=== PATIENT | male | born 1970 | race Two or more races ===

== ENCOUNTER 2018-12-20 01:25 | Emergency (ER) | payer OTHER ==
--- NOTE | 2018-12-20 02:23 | PDOC ---
History of Present Illness - General Chief Complaint: Pain, Acute Stated Complaint: PAIN LOWER RIGHT SIDE History Source: Patient Exam Limitations: No Limitations - History of Present Illness Initial Comments: 12/20/18 05:25 48 yo M with a hx of bladder cancer and HTN presents to the emergency department with right flank/right lower back pain that has been ongoing for 2 days with increasing severity. Per the patient, 2 weeks ago he developed RUQ pain that migrated to the right flank 2 days ago. Per the patient, the pain would be worse after eating fatty meals. Currently, the pain feels like a sharp burning sensation that is 4/10 now (10/10 at presentation). Colicky in nature. Per the patient, he denies the following: fever, chills, hematuria, dysuria, hematochezia, diarrhea, hx of gallstones, trauma, and rashes. He states he was told many years ago he had a kidney stone seen on CT, but does not know laterality. Shx: None Meds: losartan Allergies: NKDA Social: Endorses cigar smoking 12/20/18 05:41 Past History - Past Medical History Allergies/Adverse Reactions: Allergies Allergy/AdvReac Type Severity Reaction Status Date / Time ethinyl estradiol Allergy Verified 12/20/18 01:55 [From [facility] ()] levonorgestrel Allergy Verified 12/20/18 01:55 [From [facility] ()] Home Medications: Ambulatory Orders Losartan 50Mg/Hctz 12.5MG [Hyzaar -] 1 tab PO DAILY 12/20/18 Naproxen 500 mg PO BID PRN #20 tablet 12/20/18 COPD: No HTN: Yes - Suicide/Smoking/Psychosocial Hx Smoking History: Never smoked Have you smoked in the past 12 months: No Information on smoking cessation initiated: No Hx Alcohol Use: No Drug/Substance Use Hx: No Review of Systems - Review of Systems Able to Perform ROS?: Yes Is the patient limited Belarusian proficient: No Constitutional: No: Chills, Diaphoresis, Fever, Weakness HEENTM: No: Eye Pain, Recent change in vision, Ear Pain, Nose Pain, Throat Pain , Mouth Pain Respiratory: No: Cough, Shortness of Breath, Hemoptysis Cardiac (ROS): No: Chest Pain, Lightheadedness, Palpitations, Syncope, Chest Tightness ABD/GI: No: Constipated, Diarrhea, Nausea, Poor Appetite, Poor Fluid Intake, Rectal Bleeding, Vomiting, Tarry Stools : Yes: Flank Pain (right). No: Burning, Dysuria, Hematuria, Incontinence Musculoskeletal: Yes: Back Pain. No: Joint Pain, Neck Pain Integumentary: No: Bruising, Erythema, Rash Neurological: No: Headache, Numbness, Tingling, Tremors, Ataxia, Dizziness Psychiatric: No: Change in Appetite Endocrine: No: Unexplained Weight Gain *Physical Exam - Vital Signs Last Vital Signs Temp Pulse Resp BP Pulse Ox 97.8 F 75 20 162/94 99 12/20/18 01:46 12/20/18 01:46 12/20/18 01:46 12/20/18 01:46 12/20/18 01:46 - Physical Exam General Appearance: Yes: Nourished, Appropriately Dressed. No: Apparent Distress, Intoxicated, Obese HEENT: positive: EOMI, RA, Normal Voice, Symmetrical, Pharynx Normal, Hearing Grossly Normal. negative: Pale Conjunctivae, Scleral Icterus (R), Scleral Icterus (L), Muffled/Hoarse voice, Pharyngeal Erythema, Tonsillar Exudate, Tonsillar Erythema, Nasal Congestion, Rhinorrhea, Excessive drooling Neck: positive: Trachea midline, Supple. negative: Tender, Lymphadenopathy (R) , Lymphadenopathy (L), Tender lateral, Tender midline Respiratory/Chest: positive: Lungs Clear, Normal Breath Sounds. negative: Chest Tender, Respiratory Distress, Accessory Muscle Use, Crackles, Rales, Rhonchi, Stridor, Wheezing, Hyperresonant Cardiovascular: positive: Regular Rhythm, Regular Rate, S1, S2. negative: Systolic Murmur Gastrointestinal/Abdominal: positive: Normal Bowel Sounds, Tender (RLQ), Flat, Soft. negative: Guarding, Rebound Lymphatic: negative: Adenopathy Musculoskeletal: positive: Normal Inspection. negative: CVA Tenderness, Vertebral Tenderness Extremity: positive: Normal Capillary Refill, Normal Inspection, Normal Range of Motion. negative: Tender, Swelling, Calf Tenderness Integumentary: positive: Normal Color, Dry, Warm Neurologic: positive: installation & maintenance executive II-XII NML intact, Fully Oriented, Alert, Normal Mood/ Affect, Normal Response, Motor Strength 5/5. negative: EOM Palsy, Facial Droop , Numbness, Sensory Deficit Moderate Sedation - Procedure Monitoring Vital Signs: Procedure Monitoring Vital Signs Temperature 97.8 F 12/20/18 01:46 Pulse Rate 75 12/20/18 01:46 Respiratory Rate 20 12/20/18 01:46 Blood Pressure 162/94 12/20/18 01:46 O2 Sat by Pulse Oximetry (%) 99 12/20/18 01:46 ED Treatment Course - LABORATORY CBC & Chemistry Diagram: 12/20/18 03:30 12/20/18 03:30 Medical Decision Making - Medical Decision Making 48 yo M with a hx of bladder cancer and HTN presents to the emergency department with right flank/right lower back pain that has been ongoing for 2 days with increasing severity. Initial vitals: Initial Vital Signs Temp Pulse Resp BP Pulse Ox 97.8 F 75 20 162/94 99 12/20/18 01:46 12/20/18 01:46 12/20/18 01:46 12/20/18 01:46 12/20/18 01:46 Work up: ddx: cholelithiasis vs cholecystitis vs uTI vs msk strain vs nephrolithiasis vs pyelonephritis vs appendicitis vs colitis vs ilelitis Laboratory Tests 12/20/18 12/20/18 12/20/18 03:30 03:30 03:30 WBC 7.2 RBC 4.50 Hgb 14.7 Hct 41.3 MCV 91.8 MCH 32.6 MCHC 35.5 RDW 13.1 Plt Count 236 MPV 8.3 Absolute Neuts (auto) 4.3 Neutrophils % 59.4 Lymphocytes % 26.0 Monocytes % 9.4 Eosinophils % 4.5 Basophils % 0.7 Nucleated RBC % 0 Sodium 140 Potassium 4.1 Chloride 107 Carbon Dioxide 28 Anion Gap 5 L BUN 17 Creatinine 1.0 Creat Clearance w eGFR 79.09 Random Glucose 90 Calcium 9.1 Total Bilirubin 0.3 AST 22 ALT 25 Alkaline Phosphatase 62 Total Protein 7.0 Albumin 3.8 Lipase 279 Urine Color Yellow Urine Appearance Clear Urine pH 5.5 Ur Specific Canvas 1.019 Urine Protein Negative Urine Glucose (UA) Negative Urine Ketones Negative Urine Blood Negative Urine Nitrite Negative Urine Bilirubin Negative Urine Urobilinogen 0.[address] abdomen and pelvis does not show acute intra-abdominal pathologies. labs wnl. patient's pain was controlled with tylenol and toradol. at the time of discharge, the patient's pain was controlled and was given a prescription for naproxen. In addition, a copy of the CT report was given to the patient. the patient was able to ambulate on his own volition. Dispo: Discharge *DC/Admit/Observation/Transfer Diagnosis at time of Disposition: Musculoskeletal back pain - Discharge Dispostion Disposition: HOME Decision to Admit order: No - Prescriptions Prescriptions: Naproxen 500 mg PO BID PRN #20 tablet PRN Reason: Pain - Referrals Referrals: [facility] – [place], [place] [facility] [place] [Provider Group] - Patient Instructions Printed Discharge Instructions: DI for Low Back Pain Additional Instructions: you were seen in the emergency department for the evaluation of your back pain. per the CT, you do not have an intra-abdominal process. your labs were within normal limits. please follow up with your primary medical doctor within 1 week after discharge for follow up care and management. please return to the emergency department if you have worsening symptoms or new concerning symptoms such as pain with urination, blood in the urine, intractable nausea and vomiting , and fevers. In addition, please return to the emergency department if you are unable to walk and have difficulty urinating. thank you. - Post Discharge Activity
[2018-12-20] MEDS ORDERED: ACETAMINOPHEN 1000 MG/100 ML VIAL (NON FORMULARY) IVPB ONE (03:14)
[2018-12-20] MEDS ORDERED: SODIUM CHLORIDE 1,000 ML IV STA (03:14)
[2018-12-20 03:29] VITALS: BMI 25.8
[2018-12-20] MEDS ORDERED: ACETAMINOPHEN INJECTION 100 ML IVPB ONE (03:35)
[2018-12-20 03:37] LABS: BASO % 0.7 % (0-2.0); EOS % 4.5 % (0-4.5); HEMATOCRIT 41.3 % (35.4-49); HEMOGLOBIN 14.7 GM/dL (11.7-16.9); MCH 32.6 pg (25.7-33.7); MCHC 35.5 g/dl (32.0-35.9); MEAN CELL VOLUME 91.8 fl (80-96); MEAN PLT VOLUME 8.3 fl (7.5-11.1); MONO % 9.4 % (3.8-10.2); NEUT % 59.4 % (42.8-82.8); PLATELET COUNT 236 K/MM3 (134-434); RDW 13.1 % (11.9-15.9); WHITE BLOOD COUNT 7.2 K/mm3 (4.0-10.0)
[2018-12-20 03:40] LABS: PH,URINE 5.5 (5.0-8.0); URINE APPEARANCE CLEAR; URINE BILIRUBIN NEGATIVE (<2.0 mg/dL); URINE COLOR YELLOW; URINE GLUCOSE (UA) NEGATIVE (NEGATIVE); URINE KETONE NEGATIVE (NEGATIVE); URINE LEUK ESTERASE NEGATIVE (NEGATIVE); URINE NITRITE NEGATIVE (NEGATIVE); URINE PROTEIN NEGATIVE (NEGATIVE); URINE UROBILINOGEN 0.2 mg/dL (0.2-1.0)
--- NOTE | 2018-12-20 03:56 | PDOC ---
Attending Attestation - Resident Resident Name: Boy Clifton - ED Attending Attestation I have performed the following: I have examined & evaluated the patient, The case was reviewed & discussed with the resident, I agree w/resident's findings & plan, Exceptions are as noted - HPI HPI: 12/20/18 03:52 48 M with no PMH presents to ED with R side pain x 2 weeks. Pt endorses intermittent pain that started in his R ribcage. However, he states that the pain has since migrated lower to his R flank. He denies N/V. Denies F/C. Denies dysuria. Denies any recent injury. Pain is not positional. Not associated with eating or drinking. - Physicial Exam PE: 12/20/18 03:54 GENERAL: Awake, alert, and fully oriented, in no acute distress. HEAD: No signs of trauma EYES: PERRLA, EOMI, sclera anicteric, conjunctiva clear ENT: Auricles normal inspection, hearing grossly normal, nares patent, oropharynx clear without exudates. Moist mucosa NECK: Nontender, no stepoffs, Normal ROM, supple, no lymphadenopathy, JVD, or masses LUNGS: Breath sounds equal, clear to auscultation bilaterally. No wheezes, and no crackles HEART: Regular rate and rhythm, normal S1 and S2, no murmurs, rubs or gallops ABDOMEN: Soft, nontender, normoactive bowel sounds. No guarding, no rebound. No masses EXTREMITIES: Normal range of motion, no edema. No clubbing or cyanosis. No cords, erythema, or tenderness NEUROLOGICAL: Cranial nerves II through XII intact. 5/5 strength and sensation in all extremities, Normal speech, normal gait, normal cerebellar function SKIN: Warm, Dry, normal turgor, no rashes or lesions noted. BACK: No CVAT - Medical Decision Making 12/20/18 03:56 48 M with R side pain. Suspect nephrolithiasis vs msk pain. - Labs - UA - CTAP 12/20/18 06:[address] completely benign PT reassessed - resting comfortably in bed without any significant pain. Suspect msk etiology. Pt is well appearing, with normal vitals. Clinically stable for DC at this time. I discussed the physical exam findings, ancillary test results and final diagnoses with the patient. I answered all of the patient's questions. The patient was satisfied with the care received and felt comfortable with the discharge plan and treatment plan. The patient agrees to follow up with the primary care physician within 24-72 hours.
[2018-12-20 04:08] LABS: ALBUMIN 3.8 g/dl (3.4-5.0); ALK PHOS 62 U/L (45-117); ANION GAP 5 MMOL/L (8-16); BILIRUBIN,TOTAL 0.3 mg/dL (0.2-1); BLOOD UREA NITROGEN 17 mg/dL (7-18); CALCIUM 9.1 mg/dL (8.5-10.1); CHLORIDE 107 mmol/L (98-107); CO2 28 mmol/L (21-32); GLUCOSE,RANDOM 90 mg/dL (74-106); LIPASE 279 U/L (73-393); POTASSIUM 4.1 mmol/L (3.5-5.1); SGOT/AST 22 U/L (15-37); SGPT/ALT 25 U/L (13-61); SODIUM 140 mmol/L (136-145)
[2018-12-20] MEDS ORDERED: KETOROLAC TROMETHAMINE 15 MG/ML VIAL IVPUSH ONE (06:32)
[2018-12-20] MEDS ORDERED: KETOROLAC TROMETHAMINE 15 MG/ML VIAL ONE (06:34)
[2018-12-20 07:41] VITALS: BP 141/53; PULSE 52; TEMP 97.7
== END 2018-12-20 07:41 | disposition home or self-care (01) ==
LOC: JER 01:25
PROC: 3E0337Z Introduction of Electrolytic and Water Balance Substance into Peripheral Vein, Percutaneous Approach (ICD-10-PCS; principal; 2018-12-20)
PROC: 3E033NZ Introduction of Analgesics, Hypnotics, Sedatives into Peripheral Vein, Percutaneous Approach (ICD-10-PCS; 2018-12-20)
PROC: 3E0333Z Introduction of Anti-inflammatory into Peripheral Vein, Percutaneous Approach (ICD-10-PCS; 2018-12-20)
DX: M54.89 Other dorsalgia (principal); I10 Essential (primary) hypertension; Z85.51 Personal history of malignant neoplasm of bladder
CPT/HCPCS: 36415; 74177-TC; 80053; 81003; 83690; 85025; 87086; 99283-25; J0131; J7030